=== PATIENT | male | born 1940 | race Caucasian/White ===

== ENCOUNTER 2018-08-26 17:11 | Emergency (ER) | payer MEDICARE ==
[~2018-08-26] VITALS: Ht 180.3 cm; Wt 73.0 kg
--- NOTE | 2018-08-26 18:00 | NUR ---
DR MCCLAIN AT THE BEDSIDE FOR EVAL AND EVAL.
[2018-08-26] MEDS ORDERED: MUPIROCIN 2% OINT 22 GM TUBE TP ONE (18:15)
[2018-08-26] MEDS ORDERED: MUPIROCIN 2% OINT 22 GM TUBE ONE (18:15)
[2018-08-26] MEDS ORDERED: SULFAMETH/TRIMETH 800/160 MG TABLET ONE (18:15)
[2018-08-26] MEDS ORDERED: SULFAMETH/TRIMETH 800/160 MG TABLET PO ONE (18:15)
[2018-08-26 18:29] VITALS: BP 123/77
--- NOTE | 2018-08-26 18:30 | NUR ---
Patient discharged to home in stable conditon. Written and verbal after care instructions given. Patient verbalizes understanding of instructions.
== END 2018-08-26 18:30 | disposition home or self-care (01) ==
LOC: ER 17:12
DX: L03.115 Cellulitis of right lower limb (principal); E78.5 Hyperlipidemia, unspecified
CPT/HCPCS: A4663

== ENCOUNTER 2019-08-03 17:38 | Inpatient (IN) | payer MEDICARE ==
[~2019-08-03] VITALS: Ht 175.3 cm; Wt 88.5 kg
[2019-08-03] MEDS ORDERED: AMOX-430 PO (18:08)
[2019-08-03] MEDS ORDERED: CLIN300C11 PO (18:08)
[2019-08-03 18:13] LABS: BASOPHILS % (AUTO) 0.5 % (0.0-2.0); EOSINOPHILS # (AUTO) 0.1 K/uL (0.0-0.7); EOSINOPHILS % (AUTO) 3.7 % (0.0-7.0); HEMATOCRIT 37.6 % (36.7-47.1); HEMOGLOBIN 12.2 g/dL (12.5-16.3); LYMPHOCYTES # (AUTO) 0.6 K/uL (20.0-40.0); LYMPHOCYTES % (AUTO) 17.9 % (20.5-51.5); MEAN CORPUSCULAR HEMOGLOBIN 29.9 uug (23.8-33.4); MEAN CORPUSCULAR HGB CONC 33 g/dL (32.5-36.3); MEAN CORPUSCULAR VOLUME 91.9 fL (73.0-96.2); MONOCYTES # (AUTO) 0.2 K/uL (2.0-10.0); MONOCYTES % (AUTO) 7.3 % (0.0-11.0); NEUTROPHILS # (AUTO) 2.3 K/uL (1.8-8.9); NEUTROPHILS % (AUTO) 70.6 % (38.5-71.5); PLATELET COUNT (AUTO) 102 K/uL (152-348); RED BLOOD CELL COUNT(AUTO) 4.09 MIL/uL (4.06-5.63); WHITE BLOOD COUNT (AUTO) 3.3 K/uL (3.6-10.2)
[2019-08-03] MEDS ORDERED: CARB-93 PO (18:13)
[2019-08-03] MEDS ORDERED: CLON1TAB12 PO (18:13)
[2019-08-03] MEDS ORDERED: HYDR-4354 PO (18:13)
[2019-08-03] MEDS ORDERED: LEVO100T10 PO (18:13)
[2019-08-03] MEDS ORDERED: GABA-534 PO (18:13)
[2019-08-03] MEDS ORDERED: FURO-152 PO (18:13)
[2019-08-03] MEDS ORDERED: LISI-603 PO (18:13)
[2019-08-03] MEDS ORDERED: TIZA4TAB5 PO (18:13)
[2019-08-03] MEDS ORDERED: MODA100T29 PO (18:13)
[2019-08-03] MEDS ORDERED: PRED2.5T PO (18:13)
[2019-08-03] MEDS ORDERED: UMEC62.5 IH (18:13)
[2019-08-03] MEDS ORDERED: FLUO40CA49 PO (18:13)
[2019-08-03] MEDS ORDERED: PROM5SYR PO (18:15)
[2019-08-03 18:19] LABS: CREATININE 0.9 mg/dL (0.6-1.3); POTASSIUM 4.2 mmol/L (3.5-5.1)
[2019-08-03 18:32] LABS: BILIRUBIN,DIRECT 0.1 mg/dL (0.0-0.2); BILIRUBIN,TOTAL 0.2 mg/dL (0.2-1.0)
[2019-08-03] MEDS ORDERED: AZITHROMYCIN IV 500 MG in IV DEXTROSE 5% 250 ML IV ONE (19:00)
[2019-08-03] MEDS ORDERED: CEFTRIAXONE 1 G in IV DEXTROSE 5% 50 ML IV ONE (19:00)
[2019-08-03] MEDS ORDERED: ALBUTEROL SULFATE 2.5 MG/3 ML NEBU NEB ONE (19:00)
[2019-08-03] MEDS ORDERED: IPRATROPIUM BROMIDE 0.5 MG/2.5 ML NEBU NEB ONE (19:00)
[2019-08-03] MEDS ORDERED: IPRATROPIUM BROMIDE 0.5 MG/2.5 ML NEBU ONE (19:01)
[2019-08-03] MEDS ORDERED: ALBUTEROL SULFATE 2.5 MG/3 ML NEBU ONE (19:01)
[2019-08-03] MEDS ORDERED: CEFTRIAXONE 1 G VIAL ONE (19:06)
[2019-08-03] MEDS ORDERED: AZITHROMYCIN 500MG/ D5W 250ML IVPB **ER PYXIS ONLY IV ONE (19:16)
--- NOTE | 2019-08-03 19:19 | NUR ---
DR. BAXTER CALLED BACK, SPEAKING WITH DR. MCCLAIN AT THIS TIME.
--- NOTE | 2019-08-03 20:00 | NUR ---
Pt. admitted to TELE , under care of Dr. BAXTER Belongs List completed. REPORT GIVEN TO JESUS CORRIGAN.
--- NOTE | 2019-08-03 20:23 | NUR ---
ZITHROMAX INFUSION NOT COMPLETED AT THIS TIME. PATIENT WILL BE TRANSFERED TO THE FLOOR, IV TO BE COMPLETED BY FLOOR NURSE. JESUS CORRIGAN NOTIFIED.
--- NOTE | 2019-08-03 20:45 | NUR ---
RECEIVED PATIENT VIA GURNEY FROM ER. PATIENT IS A/O X4. DENIES ANY PAIN UPON ARRIVAL TO FLOOR. DENIES ANY SOB. NO RESP. DISTRESS NOTED. VS WNL. PLACED ON TELE ORDERED, SR. H/L INTACT AND PATENT, NOTED TO LEFT AC #20 GAUGE. ORIENTED TO ROOM AND CALL LIGHT. CALL LIGHT IN REACH. ALL NEEDS ATTENDED, WILL CONTINUE TO MONITOR AND ASSESS.
[2019-08-03 20:48] VITALS: BP 159/83
[2019-08-03] MEDS ORDERED: ACETAMINOPHEN 325 MG TABLET PO PRN (21:15)
[2019-08-03] MEDS ORDERED: MORPHINE SULFATE 2 MG/1 ML DISP.SYRIN IV PRN (21:15)
[2019-08-03] MEDS ORDERED: MAGNESIUM HYDROXIDE 30 ML LIQUID UDC PO PRN (21:15)
[2019-08-03] MEDS ORDERED: ONDANSETRON 4 MG/2 ML VIAL IV PRN (21:15)
[2019-08-03] MEDS: AZITHROMYCIN IV 500 MG in IV DEXTROSE 5% 250 ML IV SCH (21:52)
[2019-08-03] MEDS: HYDROCODONE/APAP 10-325 MG TABLET PO PRN (22:21)
[2019-08-03] MEDS ORDERED: LOPERAMIDE HCL 2 MG CAPSULE PO ONE (22:30)
[2019-08-03] MEDS: methylPREDNISolone SOD SUCC 40 MG/ML VIAL IV SCH (22:32)
[2019-08-04 00:13] VITALS: BP 140/72
[2019-08-04] MEDS: CLONAZEPAM 1 MG TABLET PO PRN (00:52)
[2019-08-04] MEDS: IPRATROPIUM BROMIDE 0.5 MG/2.5 ML NEBU NEB PRN (03:46)
[2019-08-04] MEDS: ALBUTEROL SULFATE 1.25 MG/3 ML NEBU NEB PRN (03:46)
[2019-08-04 04:00] VITALS: BP 140/65
[2019-08-04] MEDS: methylPREDNISolone SOD SUCC 40 MG/ML VIAL IV SCH ×3 (06:05→21:54)
[2019-08-04 06:15] LABS: BASOPHILS % (AUTO) 0.1 % (0.0-2.0); EOSINOPHILS % (AUTO) 0.1 % (0.0-7.0); HEMOGLOBIN 11.4 g/dL (12.5-16.3); LYMPHOCYTES # (AUTO) 0.4 K/uL (20.0-40.0); LYMPHOCYTES % (AUTO) 17.5 % (20.5-51.5); MEAN CORPUSCULAR HEMOGLOBIN 29.4 uug (23.8-33.4); MEAN CORPUSCULAR HGB CONC 33 g/dL (32.5-36.3); MEAN CORPUSCULAR VOLUME 90.3 fL (73.0-96.2); MONOCYTES # (AUTO) 0.1 K/uL (2.0-10.0); MONOCYTES % (AUTO) 3.4 % (0.0-11.0); NEUTROPHILS # (AUTO) 1.9 K/uL (1.8-8.9); NEUTROPHILS % (AUTO) 78.9 % (38.5-71.5); PLATELET COUNT (AUTO) 94 K/uL (152-348); RED BLOOD CELL COUNT(AUTO) 3.87 MIL/uL (4.06-5.63); WHITE BLOOD COUNT (AUTO) 2.4 K/uL (3.6-10.2)
[2019-08-04] MEDS: LEVOTHYROXINE SODIUM 100 MCG TABLET PO SCH (06:30)
[2019-08-04 06:45] LABS: BILIRUBIN,TOTAL 0.1 mg/dL (0.2-1.0); CREATININE 0.9 mg/dL (0.6-1.3); MAGNESIUM 1.8 mg/dL (1.8-2.4); PHOSPHOROUS 2.7 mg/dL (2.5-4.9); POTASSIUM 4.4 mmol/L (3.5-5.1); TOTAL PROTEIN, SERUM 6.5 g/dL (6.4-8.2)
--- NOTE | 2019-08-04 07:15 | NUR ---
Received report from manager loan nurse, patient in bed awake no distress noted at this time, bed in low position, side rails up x2, call light in reach. Sinus Martín 46 on the monitor.
[2019-08-04 07:51] LABS: THYROID STIMULATING HORMONE 0.464 mIU/mL (0.358-3.740)
[2019-08-04 08:30] VITALS: BP 193/79
[2019-08-04] MEDS: FLUTICASONE/VILANTEROL 1 EACH BLST.W.DEV INH SCH (08:40)
[2019-08-04] MEDS: CARBIDOPA/LEVODOPA 25-100MG TABLET PO SCH ×3 (08:42→17:28)
[2019-08-04] MEDS: GABAPENTIN 300 MG CAPSULE PO SCH ×3 (08:42→17:28)
[2019-08-04] MEDS: FUROSEMIDE 20 MG TABLET PO SCH (08:42)
[2019-08-04] MEDS: FLUOXETINE HCL 20 MG CAPSULE PO SCH (08:43)
[2019-08-04] MEDS: MODAFINIL 100 MG TABLET PO SCH (08:43)
[2019-08-04] MEDS: LISINOPRIL 20 MG TABLET PO SCH (08:48)
[2019-08-04] MEDS: hydrALAZINE HCL 25 MG TABLET PO PRN ×2 (08:50→20:49)
[2019-08-04] MEDS ORDERED: predniSONE 5 MG TABLET PO SCH (09:00)
[2019-08-04] MEDS ORDERED: Medication Not On Formulary EA (Fluoxetine Hcl 40 MG) PO SCH (09:00)
[2019-08-04 11:07] VITALS: BP 176/79
[2019-08-04 11:28] LABS: LYMPHOCYTES % (MANUAL) 7 % (20-40); MONOCYTES % (MANUAL) 5 % (2-10); NEUTROPHILS % (MANUAL) 88 % (42-75)
[2019-08-04] MEDS: GUAIFENESIN/DEXTROMETHORPHAN 5 ML UDC PO PRN ×2 (11:49→20:34)
[2019-08-04] MEDS: AMLODIPINE 5 MG TABLET PO SCH ×3 (11:50→20:49)
[2019-08-04 15:42] VITALS: BP 156/63
[2019-08-04] MEDS ORDERED: DUTA0.5C PO (18:31)
[2019-08-04] MEDS ORDERED: TAMS-3 PO (18:31)
[2019-08-04] MEDS ORDERED: TADA5TAB2 PO (18:31)
[2019-08-04] MEDS: CEFTRIAXONE 1 G in IV DEXTROSE 5% 50 ML IV SCH (19:10)
[2019-08-04] MEDS: TAMSULOSIN HCL 0.4 MG CAP.SR.24H PO SCH (20:34)
[2019-08-04] MEDS: DOCUSATE SODIUM 100 MG CAPSULE PO SCH (20:34)
[2019-08-04] MEDS: AZITHROMYCIN IV 500 MG in IV DEXTROSE 5% 250 ML IV SCH (20:36)
--- NOTE | 2019-08-04 20:53 | NUR ---
PATIENT REFUSED AMLODIPINE CITING A BAD REACTION TO IT, ASKED FOR HYDRALAZINE INSTEAD, BP 170/73. IV INFILTRATED AFTER STARTING ZITHROMAX. REMOVED AND ELEVATED, ICE APPLIED.
[2019-08-04] MEDS: HYDROCODONE/APAP 10-325 MG TABLET PO PRN (21:07)
--- NOTE | 2019-08-05 00:40 | NUR ---
Spoke with dr. Carranza re: bp 189/83 after prn Hydralazine. Additional order for Clonidine 0.1 Q6H PRN for SBP over 160 was received.
[2019-08-05] MEDS: CLONIDINE HCL 0.1 MG TABLET PO PRN ×2 (00:50→17:23)
[2019-08-05] MEDS: CLONAZEPAM 1 MG TABLET PO PRN ×2 (01:46→22:49)
[2019-08-05] MEDS: methylPREDNISolone SOD SUCC 40 MG/ML VIAL IV SCH (06:00)
[2019-08-05 06:40] LABS: CREATININE 0.8 mg/dL (0.6-1.3); MAGNESIUM 1.7 mg/dL (1.8-2.4); PHOSPHOROUS 2.9 mg/dL (2.5-4.9); POTASSIUM 4.1 mmol/L (3.5-5.1)
[2019-08-05] MEDS: LEVOTHYROXINE SODIUM 100 MCG TABLET PO SCH (06:44)
[2019-08-05 07:32] LABS: BASOPHILS % (AUTO) 0.1 % (0.0-2.0); HEMOGLOBIN 11.6 g/dL (12.5-16.3); LYMPHOCYTES # (AUTO) 0.6 K/uL (20.0-40.0); LYMPHOCYTES % (AUTO) 14.9 % (20.5-51.5); MEAN CORPUSCULAR HEMOGLOBIN 30.2 uug (23.8-33.4); MEAN CORPUSCULAR HGB CONC 33 g/dL (32.5-36.3); MEAN CORPUSCULAR VOLUME 90.9 fL (73.0-96.2); MONOCYTES # (AUTO) 0.3 K/uL (2.0-10.0); MONOCYTES % (AUTO) 7.9 % (0.0-11.0); NEUTROPHILS # (AUTO) 2.9 K/uL (1.8-8.9); NEUTROPHILS % (AUTO) 77.1 % (38.5-71.5); PLATELET COUNT (AUTO) 113 K/uL (152-348); RED BLOOD CELL COUNT(AUTO) 3.85 MIL/uL (4.06-5.63)
[2019-08-05 07:55] LABS: WHITE BLOOD COUNT (AUTO) 3.8 K/uL (3.6-10.2)
[2019-08-05] MEDS: ALBUTEROL SULFATE 1.25 MG/3 ML NEBU NEB PRN ×2 (08:31→20:28)
[2019-08-05] MEDS: IPRATROPIUM BROMIDE 0.5 MG/2.5 ML NEBU NEB PRN ×2 (08:31→20:28)
[2019-08-05] MEDS: AMLODIPINE 5 MG TABLET PO SCH ×2 (09:00→21:00)
[2019-08-05] MEDS: LISINOPRIL 20 MG TABLET PO SCH ×2 (09:34→21:06)
[2019-08-05] MEDS: CARBIDOPA/LEVODOPA 25-100MG TABLET PO SCH ×3 (09:34→17:23)
[2019-08-05] MEDS: MODAFINIL 100 MG TABLET PO SCH (09:34)
[2019-08-05] MEDS: FLUTICASONE/VILANTEROL 1 EACH BLST.W.DEV INH SCH (09:35)
[2019-08-05] MEDS: GABAPENTIN 300 MG CAPSULE PO SCH ×3 (09:35→17:23)
[2019-08-05] MEDS: FUROSEMIDE 20 MG TABLET PO SCH (09:35)
[2019-08-05] MEDS: FLUOXETINE HCL 20 MG CAPSULE PO SCH (09:37)
[2019-08-05] MEDS ORDERED: MAGNESIUM OXIDE 400 MG TABLET PO ONE (10:15)
[2019-08-05 11:30] VITALS: BP 149/78
[2019-08-05] MEDS: hydrALAZINE HCL 25 MG TABLET PO PRN ×2 (12:01→17:23)
[2019-08-05] MEDS: GUAIFENESIN/DEXTROMETHORPHAN 5 ML UDC PO PRN ×2 (13:19→21:06)
[2019-08-05 16:00] VITALS: BP 173/83
[2019-08-05] MEDS: CEFTRIAXONE 1 G in IV DEXTROSE 5% 50 ML IV SCH (18:01)
[2019-08-05] MEDS ORDERED: LOPERAMIDE HCL 2 MG CAPSULE PO PRN (18:15)
--- NOTE | 2019-08-05 19:20 | NUR ---
RECEIVED PATIENT IN BED, AWAKE. AO X 4. NO COMPLAINTS OF PAIN OR SHORTNESS OF BREATH AT THIS MOMENT. IV SITE IN RIGHT FOREARM FLUSHING, PATENT AND INTACT. CALL LIGHT WITHIN REACH. IMMEDIATE NEEDS ATTENDED. SAFETY PROTOCOLS IN PLACE. WILL CONTINUE MONITORING
[2019-08-05 20:28] VITALS: BP 164/72
[2019-08-05] MEDS ORDERED: methylPREDNISolone SOD SUCC 40 MG/ML VIAL IV SCH (21:00)
[2019-08-05] MEDS: DOCUSATE SODIUM 100 MG CAPSULE PO SCH (21:00)
[2019-08-05] MEDS: TAMSULOSIN HCL 0.4 MG CAP.SR.24H PO SCH (21:06)
[2019-08-05] MEDS: ACIDOPHILUS/BULGARICUS CHEW TAB PO SCH (21:06)
[2019-08-05] MEDS: AZITHROMYCIN IV 500 MG in IV DEXTROSE 5% 250 ML IV SCH (21:07)
[2019-08-06 04:00] VITALS: BP 146/63
[2019-08-06] MEDS: GUAIFENESIN/DEXTROMETHORPHAN 5 ML UDC PO PRN ×2 (04:20→17:52)
[2019-08-06] MEDS: HYDROCODONE/APAP 10-325 MG TABLET PO PRN (04:21)
--- NOTE | 2019-08-06 05:25 | NUR ---
PATIENT SLEPT WELL THROUGHOUT THE NIGHT. NO ACUTE CHANGE IN PATIENT CONDITION. BLOOD PRESSURE STABILIZED. WILL ENDORSE TO ONCOMING SHIFT.
[2019-08-06] MEDS: LEVOTHYROXINE SODIUM 100 MCG TABLET PO SCH (06:32)
[2019-08-06 06:35] LABS: BASOPHILS % (AUTO) 0.3 % (0.0-2.0); EOSINOPHILS # (AUTO) 0.1 K/uL (0.0-0.7); EOSINOPHILS % (AUTO) 1.8 % (0.0-7.0); LYMPHOCYTES # (AUTO) 0.9 K/uL (20.0-40.0); LYMPHOCYTES % (AUTO) 27.5 % (20.5-51.5); MEAN CORPUSCULAR HEMOGLOBIN 29.7 uug (23.8-33.4); MEAN CORPUSCULAR HGB CONC 32 g/dL (32.5-36.3); MEAN CORPUSCULAR VOLUME 91.8 fL (73.0-96.2); MONOCYTES # (AUTO) 0.4 K/uL (2.0-10.0); MONOCYTES % (AUTO) 10.9 % (0.0-11.0); NEUTROPHILS % (AUTO) 59.5 % (38.5-71.5); PLATELET COUNT (AUTO) 120 K/uL (152-348); RED BLOOD CELL COUNT(AUTO) 4.03 MIL/uL (4.06-5.63); WHITE BLOOD COUNT (AUTO) 3.4 K/uL (3.6-10.2)
[2019-08-06 06:58] LABS: CARBON DIOXIDE 29 mmol/L (21-32); CHLORIDE 102 mmol/L (98-107); CREATININE 0.9 mg/dL (0.6-1.3); GLUCOSE 105 mg/dL (74-106); MAGNESIUM 1.8 mg/dL (1.8-2.4); POTASSIUM 3.4 mmol/L (3.5-5.1); UREA NITROGEN, BLOOD 21 mg/dL (7-18)
[2019-08-06] MEDS: FLUTICASONE/VILANTEROL 1 EACH BLST.W.DEV INH SCH (09:00)
[2019-08-06] MEDS: AMLODIPINE 5 MG TABLET PO SCH ×2 (09:00→20:28)
[2019-08-06] MEDS: predniSONE 5 MG TABLET PO SCH (09:58)
[2019-08-06] MEDS: GABAPENTIN 300 MG CAPSULE PO SCH ×3 (09:58→17:52)
[2019-08-06] MEDS: FUROSEMIDE 20 MG TABLET PO SCH (09:58)
[2019-08-06] MEDS: ACIDOPHILUS/BULGARICUS CHEW TAB PO SCH ×2 (09:58→20:28)
[2019-08-06] MEDS: MODAFINIL 100 MG TABLET PO SCH (09:59)
[2019-08-06] MEDS: CARBIDOPA/LEVODOPA 25-100MG TABLET PO SCH ×3 (09:59→17:52)
[2019-08-06] MEDS: LISINOPRIL 20 MG TABLET PO SCH ×2 (09:59→20:28)
[2019-08-06] MEDS: FLUOXETINE HCL 20 MG CAPSULE PO SCH (09:59)
[2019-08-06] MEDS: IPRATROPIUM BROMIDE 0.5 MG/2.5 ML NEBU NEB PRN ×2 (11:01→22:50)
[2019-08-06] MEDS: ALBUTEROL SULFATE 1.25 MG/3 ML NEBU NEB PRN ×2 (11:01→22:50)
[2019-08-06 11:25] VITALS: BP 152/64
[2019-08-06] MEDS ORDERED: POTASSIUM CHLORIDE 20 MEQ TAB.PRT.SR PO ONE (12:00)
[2019-08-06 15:47] VITALS: BP 159/76
[2019-08-06] MEDS: CEFTRIAXONE 1 G in IV DEXTROSE 5% 50 ML IV SCH (19:06)
--- NOTE | 2019-08-06 19:15 | NUR ---
RECEIVED PATIENT IN BED, AWAKE. AO X 4. PATIENT VERBALIZES NO PAIN OR SHORTNESS OF BREATH AT THIS MOMENT. IV SITE IN RIGHT FOREARM FLUSHING, PATENT AND INTACT. CALL LIGHT WITHIN REACH. NEEDS ATTENDED. COMFORT PROVIDED. SAFETY PROTOCOLS IN PLACE. WILL CONTINUE TO MONITOR PATIENT.
[2019-08-06] MEDS ORDERED: AZITHROMYCIN 250 MG TABLET PO SCH (20:00)
[2019-08-06 20:25] VITALS: BP 147/65
[2019-08-06] MEDS: DOCUSATE SODIUM 100 MG CAPSULE PO SCH (20:28)
[2019-08-06] MEDS: TAMSULOSIN HCL 0.4 MG CAP.SR.24H PO SCH (20:28)
[2019-08-06] MEDS: CLONAZEPAM 1 MG TABLET PO PRN (22:14)
[2019-08-07] MEDS: GUAIFENESIN/DEXTROMETHORPHAN 5 ML UDC PO PRN ×2 (03:26→09:44)
[2019-08-07 06:11] VITALS: BP 142/72
[2019-08-07] MEDS: LEVOTHYROXINE SODIUM 100 MCG TABLET PO SCH (06:32)
[2019-08-07 06:39] LABS: BASOPHILS % (AUTO) 0.4 % (0.0-2.0); EOSINOPHILS # (AUTO) 0.1 K/uL (0.0-0.7); EOSINOPHILS % (AUTO) 2.6 % (0.0-7.0); HEMATOCRIT 35.5 % (36.7-47.1); HEMOGLOBIN 11.8 g/dL (12.5-16.3); MEAN CORPUSCULAR HEMOGLOBIN 29.6 uug (23.8-33.4); MEAN CORPUSCULAR HGB CONC 33 g/dL (32.5-36.3); MEAN CORPUSCULAR VOLUME 89.5 fL (73.0-96.2); MONOCYTES # (AUTO) 0.4 K/uL (2.0-10.0); MONOCYTES % (AUTO) 12.9 % (0.0-11.0); NEUTROPHILS # (AUTO) 1.9 K/uL (1.8-8.9); NEUTROPHILS % (AUTO) 56.1 % (38.5-71.5); PLATELET COUNT (AUTO) 126 K/uL (152-348); RED BLOOD CELL COUNT(AUTO) 3.97 MIL/uL (4.06-5.63); WHITE BLOOD COUNT (AUTO) 3.4 K/uL (3.6-10.2)
[2019-08-07 07:19] LABS: CREATININE 0.9 mg/dL (0.6-1.3); MAGNESIUM 1.9 mg/dL (1.8-2.4); PHOSPHOROUS 3.5 mg/dL (2.5-4.9); POTASSIUM 3.7 mmol/L (3.5-5.1)
[2019-08-07] MEDS: ACIDOPHILUS/BULGARICUS CHEW TAB PO SCH (08:16)
[2019-08-07] MEDS: GABAPENTIN 300 MG CAPSULE PO SCH ×3 (08:16→16:12)
[2019-08-07] MEDS: FUROSEMIDE 20 MG TABLET PO SCH (08:16)
[2019-08-07] MEDS: FLUOXETINE HCL 20 MG CAPSULE PO SCH (08:17)
[2019-08-07] MEDS: CARBIDOPA/LEVODOPA 25-100MG TABLET PO SCH ×3 (08:17→16:12)
[2019-08-07] MEDS: MODAFINIL 100 MG TABLET PO SCH (08:17)
[2019-08-07] MEDS: predniSONE 5 MG TABLET PO SCH (08:17)
[2019-08-07] MEDS: LISINOPRIL 20 MG TABLET PO SCH (08:18)
[2019-08-07] MEDS: AMLODIPINE 5 MG TABLET PO SCH (08:31)
[2019-08-07] MEDS: FLUTICASONE/VILANTEROL 1 EACH BLST.W.DEV INH SCH (08:47)
[2019-08-07] MEDS: IPRATROPIUM BROMIDE 0.5 MG/2.5 ML NEBU NEB PRN (10:34)
[2019-08-07] MEDS: ALBUTEROL SULFATE 1.25 MG/3 ML NEBU NEB PRN (10:34)
[2019-08-07 11:07] VITALS: BP 148/81
[2019-08-07 15:01] VITALS: BP 154/74
[2019-08-07] MEDS ORDERED: ACID1TAB4 PO (16:03)
[2019-08-07] MEDS ORDERED: ALBU18HF2 INH (16:03)
[2019-08-07] MEDS ORDERED: LEVO500T2 PO (16:03)
[2019-08-07] MEDS ORDERED: AMLO5TAB9 PO (16:03)
--- NOTE | 2019-08-07 17:11 | NUR ---
dc orders received noted and carried out,dc heplock per md orders.dc instruction given to the pt ,pt verbalized understanding all the instruction,pt left the facility via private car in stable condition
== END 2019-08-07 17:10 | disposition home or self-care (01) | DRG 177 ==
LOC: ER 17:42 → TELE3 20:35 → MEDSURG3 08-04 20:52
PROVIDERS: ADMIT Internal Medicine; ATTEND Internal Medicine
DX: J15.6 Pneumonia due to other Gram-negative bacteria (principal); E43 Unspecified severe protein-calorie malnutrition; D61.818 Other pancytopenia; J47.0 Bronchiectasis with acute lower respiratory infection; J98.11 Atelectasis; G20 Parkinson's disease; J20.9 Acute bronchitis, unspecified; E78.5 Hyperlipidemia, unspecified; M79.7 Fibromyalgia; E03.9 Hypothyroidism, unspecified; Z79.890 Hormone replacement therapy; Z88.2 Allergy status to sulfonamides; E66.9 Obesity, unspecified; F41.9 Anxiety disorder, unspecified; I10 Essential (primary) hypertension; Z79.899 Other long term (current) drug therapy; G62.9 Polyneuropathy, unspecified
CPT/HCPCS: 36415; 70030-TC; 71045; 83735; 84100; 84443; 85025; 87400; 93005; 93307; 94640; A4663; G0378; J0456; J0696; J2920; J3590; J7040; J7060; J7512; Q0144

== ENCOUNTER 2022-03-09 01:17 | Inpatient (IN) | payer MEDICARE ==
[~2022-03-09] VITALS: Ht 177.8 cm; Wt 72.6 kg
[~2022-03-09 01:17] MED LIST: ACID1TAB4 PO; ALBU18HF2 INH; AMLO-212 PO; CARB-300 PO; CLON1TAB12 PO; DUTA0.5C PO; FLUO40CA49 PO; FURO-152 PO; GABA-534 PO; LEVO100T10 PO; LEVO500T2 PO; LISI20TA30 PO; MODA100T29 PO; PRED2.5T PO; PROM5SYR PO; TADA5TAB2 PO; TAMS-3 PO; TIZA4TAB5 PO; UMEC62.5 IH
[2022-03-09] MEDS ORDERED: CLINDAMYCIN PHOSPHATE IV 900 MG in IV DEXTROSE 5% 100 ML IV ONE (02:30)
[2022-03-09] MEDS ORDERED: CLINDAMYCIN 900MG/D5W 100ML IVPB **ER PYXIS ONLY IJ ONE (02:37)
[2022-03-09] MEDS ORDERED: AMOX500T2 PO (02:44)
[2022-03-09] MEDS ORDERED: ATOR10TA PO (02:44)
[2022-03-09] MEDS ORDERED: MODA100T29 PO ×3 (02:44→04:45)
[2022-03-09] MEDS ORDERED: DOXY100C PO (02:44)
[2022-03-09] MEDS ORDERED: CLON1TAB PO (02:44)
[2022-03-09] MEDS ORDERED: HYDROCODONE/APAP 10-325 MG TABLET PO ONE (02:45)
[2022-03-09] MEDS ORDERED: HYDROCODONE/APAP 10-325 MG TABLET ONE (03:01)
[2022-03-09 03:41] LABS: HEMATOCRIT 33.4 % (36.7-47.1); MEAN CORPUSCULAR HEMOGLOBIN 27.9 uug (23.8-33.4); MEAN CORPUSCULAR VOLUME 86.8 fL (73.0-96.2); PLATELET COUNT (AUTO) 139 K/uL (152-348)
[2022-03-09 04:02] LABS: BILIRUBIN,DIRECT 0.1 mg/dL (0.0-0.2); BILIRUBIN,TOTAL 0.2 mg/dL (0.2-1.0); CREATININE 1.3 mg/dL (0.6-1.3); POTASSIUM 5.3 mmol/L (3.5-5.1); TOTAL PROTEIN, SERUM 6.1 g/dL (6.4-8.2)
[2022-03-09] MEDS ORDERED: FLUO40CA49 PO (04:22)
[2022-03-09] MEDS ORDERED: TIZA4CAP6 PO (04:22)
[2022-03-09] MEDS ORDERED: FOLI1TAB94 PO (04:22)
[2022-03-09] MEDS ORDERED: HYDR-4077 PO (04:22)
[2022-03-09] MEDS ORDERED: OXCA150T5 PO (04:22)
[2022-03-09] MEDS ORDERED: VILA10TA PO (04:22)
[2022-03-09] MEDS ORDERED: SPIR50TA5 PO (04:22)
[2022-03-09] MEDS ORDERED: METR250T36 PO (04:22)
[2022-03-09] MEDS ORDERED: PRED-170 PO (04:22)
[2022-03-09] MEDS ORDERED: metoprolol PO (04:22)
--- NOTE | 2022-03-09 04:24 | NUR ---
Paged Epic panel consulting application engineer. Waiting for Dr Michael to call back.
--- NOTE | 2022-03-09 04:45 | NUR ---
called for bed
--- NOTE | 2022-03-09 04:52 | NUR ---
Dr Carter spoke Dr Michael ultrasonic seaming machine operator for [facility] who accept patient to Med Surg.
[2022-03-09] MEDS ORDERED: REMEDY ESSENTIAL ZINC PASTE 113 GM TP PRN (06:45)
[2022-03-09] MEDS ORDERED: MAGNESIUM HYDROXIDE 30 ML LIQUID UDC PO PRN (06:45)
[2022-03-09] MEDS ORDERED: ONDANSETRON 4 MG/2 ML VIAL IV PRN (06:45)
[2022-03-09] MEDS ORDERED: ACETAMINOPHEN 325 MG TABLET PO PRN (06:45)
--- NOTE | 2022-03-09 08:42 | NUR ---
Gave report to JUVE Chase.
--- NOTE | 2022-03-09 09:13 | NUR ---
Pt transported to room 324
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
[2022-03-09 10:37] VITALS: BP 154/54
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
[2022-03-09] MEDS ORDERED: CLONAZEPAM 1 MG TABLET PO SCH (10:45)
[2022-03-09] MEDS ORDERED: CLONAZEPAM 1 MG TABLET PO ONE (11:15)
[2022-03-09] MEDS: DOXYCYCLINE HYCLATE IV 100 MG in IV DEXTROSE 5% 100 ML IV SCH ×2 (11:38→20:27)
[2022-03-09] MEDS: PANTOPRAZOLE SODIUM 40 MG TABLET.DR PO SCH (11:38)
[2022-03-09] MEDS: ENOXAPARIN SODIUM 40 MG/0.4 ML DISP.SYRIN SQ SCH (11:38)
[2022-03-09 12:30] VITALS: BP 188/55
[2022-03-09] MEDS ORDERED: ENOXAPARIN SODIUM 40 MG/0.4 ML DISP.SYRIN SQ SCH (12:45)
[2022-03-09] MEDS ORDERED: METO50TA7 PO (13:18)
[2022-03-09] MEDS ORDERED: DOXY100C5 PO (13:18)
[2022-03-09] MEDS ORDERED: TIZA4TAB5 PO (13:22)
[2022-03-09] MEDS ORDERED: CARB1TAB21 PO (13:28)
[2022-03-09] MEDS ORDERED: CLINDAMYCIN PHOSPHATE IV 900 MG in IV DEXTROSE 5% 100 ML IV SCH (14:00)
[2022-03-09] MEDS ORDERED: SWABABLE VALVE TRANSFER SET EA MC ONE (14:33)
[2022-03-09] MEDS ORDERED: IOHEXOL 350 100 ML INFUS..BTL ONE (14:33)
[2022-03-09] MEDS ORDERED: IV NORMAL SALINE 250 ML IV ONE (14:33)
[2022-03-09] MEDS ORDERED: METH2.5T PO (15:02)
[2022-03-09] MEDS ORDERED: MIRA50TA PO (15:02)
[2022-03-09] MEDS ORDERED: FESO8TAB PO (15:02)
[2022-03-09 16:00] VITALS: BP 139/59
--- NOTE | 2022-03-09 17:22 | NUR ---
Home medications confirmed with napoleon Rowan and patient. Methotrexate, Prednisone, and Modafinil discontinued from his home medlist since he does not take this at home anymore. NADER Rios made aware.
[2022-03-09] MEDS ORDERED: ALBUTEROL SULFATE 8 GM HFA.AER.AD INH PRN (18:00)
[2022-03-09] MEDS: CARBIDOPA/LEVODOPA 25-100MG TABLET PO SCH (18:30)
[2022-03-09] MEDS: METOPROLOL SUCCINATE XL 50 MG TAB.SR.24H PO SCH (18:31)
[2022-03-09] MEDS: hydrALAZINE HCL 50 MG TABLET PO SCH (18:31)
[2022-03-09] MEDS: TIZANIDINE HCL 4 MG TABLET PO SCH (18:31)
[2022-03-09] MEDS: OXCARBAZEPINE 150 MG TABLET PO SCH (18:31)
--- NOTE | 2022-03-09 18:32 | NUR ---
Message left for Lily Rowan to bring Chika Blanton and Rena.
[2022-03-09] MEDS ORDERED: OXCARBAZEPINE 150 MG TABLET PO SCH (20:00)
--- NOTE | 2022-03-09 20:05 | NUR ---
RECEIVED PATIENT IN BED. AAOX3-4, FORGETFULNESS NOTED, SOMEWHAT AGGRESSIVE WITH NURSING INTERVENTIONS. IV ACCESS PATENT AND INTACT. MRSA SWAB DONE AND SENT TO LAB. SAFETY PRECAUTIONS INITIATED. WILL CONTINUE TO MONITOR.
[2022-03-09] MEDS: ATORVASTATIN 10 MG TABLET PO SCH (20:28)
[2022-03-09] MEDS: ACIDOPHILUS/BULGARICUS CHEW TAB PO SCH (20:28)
[2022-03-09 20:46] VITALS: BP 145/62
[2022-03-10] MEDS: HYDROCODONE/APAP 5-325MG TABLET PO PRN ×4 (00:55→22:46)
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
[2022-03-10] MEDS: CLONAZEPAM 1 MG TABLET PO PRN ×2 (01:25→22:46)
[2022-03-10] MEDS: PANTOPRAZOLE SODIUM 40 MG TABLET.DR PO SCH (06:34)
[2022-03-10 06:44] LABS: HEMATOCRIT 35.1 % (36.7-47.1); MEAN CORPUSCULAR HEMOGLOBIN 28.2 uug (23.8-33.4); PLATELET COUNT (AUTO) 136 K/uL (152-348)
[2022-03-10] MEDS: LEVOTHYROXINE SODIUM 100 MCG TABLET PO SCH (07:00)
[2022-03-10] MEDS: ACIDOPHILUS/BULGARICUS CHEW TAB PO SCH ×2 (08:26→20:47)
[2022-03-10] MEDS: CARBIDOPA/LEVODOPA 25-100MG TABLET PO SCH ×3 (08:26→16:51)
[2022-03-10] MEDS: SPIRONOLACTONE 50 MG TABLET PO SCH (08:26)
[2022-03-10] MEDS: TIZANIDINE HCL 4 MG TABLET PO SCH ×3 (08:27→16:50)
[2022-03-10] MEDS: FOLIC ACID 1 MG TABLET PO SCH (08:27)
[2022-03-10] MEDS: OXCARBAZEPINE 150 MG TABLET PO SCH ×3 (08:27→16:51)
[2022-03-10] MEDS: FLUOXETINE HCL 20 MG CAPSULE PO SCH ×2 (08:28→09:00)
[2022-03-10] MEDS: DOXYCYCLINE HYCLATE IV 100 MG in IV DEXTROSE 5% 100 ML IV SCH ×2 (08:28→20:47)
[2022-03-10] MEDS: ENOXAPARIN SODIUM 40 MG/0.4 ML DISP.SYRIN SQ SCH (08:29)
[2022-03-10 08:30] VITALS: BP 155/63
[2022-03-10] MEDS ORDERED: Medication Not On Formulary EA (Fesoterodine Fumarate (Toviaz) 8 MG) PO SCH (09:00)
[2022-03-10] MEDS ORDERED: MYRBETRIQ 50 MG PO SCH (09:00)
[2022-03-10] MEDS ORDERED: [UNRECOGNIZED DRUG - OTHER] PO SCH (09:00)
[2022-03-10] MEDS ORDERED: Medication Not On Formulary EA (Vilazodone Hydrochloride (Viibryd) 20 MG) PO SCH (09:00)
[2022-03-10] MEDS ORDERED: Medication Not On Formulary EA (Mirabegron (Myrbetriq) 50 MG) PO SCH (09:00)
[2022-03-10] MEDS ORDERED: [UNRECOGNIZED DRUG - OTHER] PO SCH (09:00)
[2022-03-10] MEDS: METOPROLOL SUCCINATE XL 50 MG TAB.SR.24H PO SCH ×2 (09:00→16:52)
[2022-03-10] MEDS ORDERED: VIIBRYD 20 MG PO SCH (09:00)
[2022-03-10] MEDS: hydrALAZINE HCL 50 MG TABLET PO SCH ×3 (09:01→16:51)
[2022-03-10 10:02] LABS: CREATININE 0.9 mg/dL (0.6-1.3); MAGNESIUM 1.4 mg/dL (1.8-2.4); PHOSPHOROUS 3.2 mg/dL (2.5-4.9); POTASSIUM 5.2 mmol/L (3.5-5.1)
[2022-03-10 11:00] VITALS: BP 99/38
[2022-03-10] MEDS ORDERED: SODIUM POLYSTYRENE SULFONATE 15 G/60 ML LIQUID UDC PO ONE (11:15)
[2022-03-10 16:52] VITALS: BP 109/49
--- NOTE | 2022-03-10 18:23 | NUR ---
Pt is a/o x 3-4, with complaints of headache migraines and right leg pain. Pt's primary neurologist called and stated he is on a medication called Ubrelvy 100 mg Q24hr PRN but we do not carry that medication at our pharmacy and when I spoke with pt's napoleon, she stated that he is out of it at home. Pt napoleon will bring home medications requested by our pharmacy (Toviaz, mybetriq, and Viibryd). She stated that she will request refills for the Viibryd and myrbetriq because they no longer have them at home but will drop off the Toviaz. will endorse to [facility] shift lead.
[2022-03-10 20:00] VITALS: BP 123/53
[2022-03-10] MEDS: ATORVASTATIN 10 MG TABLET PO SCH (20:47)
[2022-03-11 04:32] VITALS: BP 119/45
--- NOTE | 2022-03-11 05:35 | NUR ---
Slept intermittently, no distress noted. Able to make needs known. Safety maintained throughout the night. Will endorse to day shift.
[2022-03-11] MEDS: LEVOTHYROXINE SODIUM 100 MCG TABLET PO SCH (06:43)
[2022-03-11] MEDS: PANTOPRAZOLE SODIUM 40 MG TABLET.DR PO SCH (06:43)
[2022-03-11 06:56] LABS: MAGNESIUM 1.4 mg/dL (1.8-2.4); POTASSIUM 4.6 mmol/L (3.5-5.1)
[2022-03-11 08:14] LABS: HEMATOCRIT 33.5 % (36.7-47.1); MEAN CORPUSCULAR HEMOGLOBIN 28.3 uug (23.8-33.4); MEAN CORPUSCULAR VOLUME 85.3 fL (73.0-96.2); PLATELET COUNT (AUTO) 119 K/uL (152-348)
[2022-03-11] MEDS: FLUOXETINE HCL 20 MG CAPSULE PO SCH (08:23)
[2022-03-11] MEDS: FOLIC ACID 1 MG TABLET PO SCH (08:23)
[2022-03-11] MEDS: CARBIDOPA/LEVODOPA 25-100MG TABLET PO SCH ×3 (08:23→16:44)
[2022-03-11] MEDS: OXCARBAZEPINE 150 MG TABLET PO SCH ×3 (08:25→16:44)
[2022-03-11] MEDS: SPIRONOLACTONE 50 MG TABLET PO SCH (08:25)
[2022-03-11] MEDS: TIZANIDINE HCL 4 MG TABLET PO SCH ×3 (08:25→16:44)
[2022-03-11] MEDS: ACIDOPHILUS/BULGARICUS CHEW TAB PO SCH (08:25)
[2022-03-11] MEDS: METOPROLOL SUCCINATE XL 50 MG TAB.SR.24H PO SCH ×3 (08:32→16:49)
[2022-03-11] MEDS: hydrALAZINE HCL 50 MG TABLET PO SCH ×3 (08:40→16:49)
[2022-03-11] MEDS: DOXYCYCLINE HYCLATE IV 100 MG in IV DEXTROSE 5% 100 ML IV SCH (08:41)
[2022-03-11] MEDS: ENOXAPARIN SODIUM 40 MG/0.4 ML DISP.SYRIN SQ SCH (08:41)
[2022-03-11] MEDS ORDERED: FESOTERODINE 8 MG PO SCH (09:00)
[2022-03-11] MEDS ORDERED: [UNRECOGNIZED DRUG - OTHER] PO SCH (09:00)
[2022-03-11] MEDS: MAGNESIUM SULFATE/D5W 100 ML IV SCH ×5 (09:51→14:36)
[2022-03-11] MEDS ORDERED: DOXY100V2 IV (12:10)
[2022-03-11 12:13] VITALS: BP 106/43
[2022-03-11] MEDS: HYDROCODONE/APAP 5-325MG TABLET PO PRN (13:45)
[2022-03-11 16:08] VITALS: BP 102/49
[2022-03-11 16:49] VITALS: BP 90/48
--- NOTE | 2022-03-11 20:30 | NUR ---
Patient was pick remover by via private car, patient alert oriented, no sob no chest pain, stable/fair condition, patient has right forearm heplock for continuing ibx theraphy, home health servce was arrangement by S[facility]. Patient took all belongings and weard N95 mask. Patient has his discharge paper, girlfriend aware of the discharge and home health arrangemenet.
== END 2022-03-11 20:30 | disposition home or self-care (01) | DRG 602 ==
LOC: ER 01:26 → MEDSURG3 08:49
PROVIDERS: ADMIT Nurse Practitioner Acute Care; ATTEND Nurse Practitioner Acute Care
DX: L03.115 Cellulitis of right lower limb (principal); N17.0 Acute kidney failure with tubular necrosis; U07.1 COVID-19; E44.1 Mild protein-calorie malnutrition; D61.818 Other pancytopenia; E03.9 Hypothyroidism, unspecified; E78.5 Hyperlipidemia, unspecified; E87.5 Hyperkalemia; G20 Parkinson's disease; E88.09 Other disorders of plasma-protein metabolism, not elsewhere classified; J40 Bronchitis, not specified as acute or chronic; I73.9 Peripheral vascular disease, unspecified; G62.9 Polyneuropathy, unspecified; D50.9 Iron deficiency anemia, unspecified; Z79.890 Hormone replacement therapy
CPT/HCPCS: 36415; 73706; 83735; 84100; 85025; 85730; 87040; A4663; G0378; J1650; J3475; J3490; J3535; Q9967